=== PATIENT | female | born 1975 | race Caucasian/White ===

== ENCOUNTER 2021-10-30 13:52 | Emergency (ER) | payer BC ==
[~2021-10-30] VITALS: Ht 167.6 cm; Wt 80.0 kg
[2021-10-30 13:59] VITALS: BP 148/76
== END 2021-10-30 14:34 | disposition left against medical advice (07) ==
LOC: ER 14:13 → EDBD 14:13 → ER 14:34
DX: R10.9 Unspecified abdominal pain (principal); Z85.3 Personal history of malignant neoplasm of breast; Z92.21 Personal history of antineoplastic chemotherapy; Z91.19 Patient's noncompliance with other medical treatment and regimen
CPT/HCPCS: 99283